=== PATIENT | female | born 1990 | race American Indian/Alaskan Native ===

== ENCOUNTER 2021-04-30 07:49 | Emergency (ER) | payer MEDICAID ==
[2021-04-30 08:09] VITALS: BP 115/81
[2021-04-30] MEDS ORDERED: ACETAMINOPHEN 500 MG TAB PO ONE (10:25)
[2021-04-30] MEDS ORDERED: SODIUM CHLORIDE 0.9% 1000 ML 1,000 ML IV ONE (10:25)
[2021-04-30] MEDS ORDERED: ONDANSETRON 4 MG/2 ML INJ IV ONE (10:25)
--- NOTE | 2021-04-30 11:25 | Emergency Department Report ---
- General Chief Complaint: Upper Respiratory Infection Stated Complaint: BODY ACHES,HEAD HURTING PUI?: Yes Source: patient Mode of arrival: Ambulatory Limitations: No Limitations - History of Present Illness Initial Comments: 30-year-old -[place] female presents to the emergency room for 1 day history of body aches weakness vomiting. She has positive sick contact. Past medical history of seizures currently on no meds does not have a primary care provider. Admits to us slight fever and chills. Has not got tested for Covid Complaint: rhinorrhea, nasal congestion Onset/Timin -: days(s) Severity scale (0 -10): 5 Quality: aching Consistency: constant Improves With: nothing Worsens With: nothing Context: sick contacts Associated Symptoms: fever, chills, myalgias, headache, rhinorrhea, nasal congestion, cough, vomiting Treatments Prior to Arrival: none - Related Data Previous Rx's Medication Instructions Recorded Last Taken Type Ondansetron [Zofran Odt] 4 mg PO Q8HR PRN #12 tab.rapdis 04/30/21 Unknown Rx Allergies Allergy/AdvReac Type Severity Reaction Status Date / Time morphine AdvReac Swelling Verified 04/30/21 08:09 Penicillins AdvReac Unknown Verified 04/30/21 08:09 ED Review of Systems ROS: Stated complaint: BODY ACHES,HEAD HURTING Other details as noted in HPI Comment: All other systems reviewed and negative ED Past Medical Hx - Medications Home Medications: Home Medications Medication Instructions Recorded Confirmed Last Taken Type Ondansetron [Zofran Odt] 4 mg PO Q8HR PRN #12 tab.rapdis 04/30/21 Unknown Rx ED Physical Exam - General Limitations: No Limitations General appearance: alert, in no apparent distress - Head Head exam: Present: atraumatic, normocephalic - Eye Eye exam: Present: normal appearance - ENT ENT exam: Present: mucous membranes moist - Neck Neck exam: Present: normal inspection - Respiratory Respiratory exam: Present: normal lung sounds bilaterally. Absent: respiratory distress - Cardiovascular Cardiovascular Exam: Present: normal rhythm, tachycardia. Absent: systolic murmur, diastolic murmur, rubs, gallop - GI/Abdominal GI/Abdominal exam: Present: soft, normal bowel sounds - Extremities Exam Extremities exam: Present: normal inspection - Back Exam Back exam: Present: normal inspection - Neurological Exam Neurological exam: Present: alert, oriented X3, normal gait - Psychiatric Psychiatric exam: Present: normal affect, normal mood - Skin Skin exam: Present: warm, dry, intact, normal color. Absent: rash ED Course Vital Signs 04/30/21 08:00 Temperature 99.6 F Pulse Rate 124 H Respiratory 28 H Rate Blood Pressure 115/81 [Right] O2 Sat by Pulse 100 Oximetry ED Medical Decision Making - Medical Decision Making 30-year-old -[place] female presents to the emergency room for 1 day history of body aches weakness vomiting. She has positive sick contact. Past medical history of seizures currently on no meds does not have a primary care provider. Admits to us slight fever and chills. Has not got tested for Covid Patient is tachycardic at 124. Nausea and vomiting we will give Zofran IV normal saline IV. And acetaminophen 1 g p.o. Critical care attestation.: If time is entered above; I have spent that time in minutes in the direct care of this critically ill patient, excluding procedure time. ED Disposition Clinical Impression: Suspected COVID-19 virus infection Disposition: HOME / SELF CARE / HOMELESS Is pt being admited?: No Does the pt Need Aspirin: No Condition: Stable Instructions: Prevent the Spread of COVID-19 if You Are Sick - CDC, COVID-19: How to Protect Yourself and Others - CDC, COVID-19 Frequently Asked Questions Additional Instructions: Your symptoms appear most consistent with a nonspecific viral syndrome. However, given this current pandemic, COVID-19 is in the differential of possibilities. Despite your previous negative COVID-19 test, I do recommend repeat outpatient Covid 19 testing. In the meantime, isolate/quarantine yours elf and stay away from anyone who is elderly, immunocompromised or chronically ill. You can use ibuprofen every 6-8 hours and Tylenol every 4-8 hours, using the dosing on the back of the bottle, as needed for any fever or body aches. Return to the emergency department with any worsening of your symptoms, development of chest pain or shortness of breath, or with any acute distress. Prescriptions: Ondansetron [Zofran Odt] 4 mg PO Q8HR PRN #12 tab.rapdis PRN Reason: Nausea And Vomiting Referrals: PRIMARY CARE,MD [Primary Care Provider] - 3-5 Days Forms: Work/School Release Form(ED) Time of Disposition: 13:34
== END 2021-04-30 13:45 | disposition home or self-care (01) ==
LOC: ED 07:49
DX: R09.81 Nasal congestion (principal); M79.18 Myalgia, other site; Z20.822 Contact with and (suspected) exposure to COVID-19; Z88.5 Allergy status to narcotic agent; Z88.0 Allergy status to penicillin; Z79.899 Other long term (current) drug therapy
CPT/HCPCS: 96361; 96374; 99282; J2405; J7030; Q0162

== ENCOUNTER 2021-12-30 11:18 | Inpatient (IN) | payer MEDICAID ==
[2021-12-30] MEDS ORDERED: ACETAMINOPHEN 325 MG TAB PO PRN ×2 (11:45→21:22)
[2021-12-30] MEDS ORDERED: miSOPROStol 200 MCG TAB PR PRN (11:45)
[2021-12-30] MEDS ORDERED: LIDOCAINE (2%) 20 MG/1 ML VIAL 20 ML MDV INFILTRATI ONE (11:45)
[2021-12-30] MEDS ORDERED: ePHEDrine SULFATE 50 MG/1 ML INJ IV PRN ×2 (11:45→13:32)
[2021-12-30] MEDS ORDERED: OXYTOCIN 10 UNIT/1 ML INJ IM PRN (11:45)
[2021-12-30] MEDS ORDERED: NalbUPHINE 10 MG/1 ML INJ IV PRN (11:45)
[2021-12-30] MEDS ORDERED: MINERAL OIL 30 ML ORAL LIQD PO PRN (11:45)
[2021-12-30] MEDS ORDERED: LACTATED RINGERS 1,000 ML IV SCH (11:45)
[2021-12-30] MEDS ORDERED: CARBOPROST TROMETHAMINE 250 MCG/1 ML INJ IM PRN (11:45)
[2021-12-30] MEDS ORDERED: PROMETHAZINE 25 MG TAB PO PRN (11:45)
[2021-12-30] MEDS ORDERED: fentaNYL 100 MCG/2 ML INJ IV PRN (11:45)
[2021-12-30] MEDS ORDERED: METHYLERGONOVINE MALEATE 0.2 MG/ML VIAL IM PRN (11:45)
[2021-12-30] MEDS ORDERED: TERBUTALINE 1 MG/1 ML INJ SUB-Q PRN (11:45)
[2021-12-30] MEDS ORDERED: LOPERAMIDE 2 MG CAP PO PRN (11:45)
[2021-12-30] MEDS ORDERED: ONDANSETRON 4 MG/2 ML INJ IV PRN (11:45)
--- NOTE | 2021-12-30 11:58 | History and Physical Report ---
History of Present Illness Date of examination: 12/30/21 Chief complaint: ctx History of present illness: at 39.3wks by EDC 01/03/22. care at Dr. Conley and pt states she was scheduled to deliver at [facility]. Pt states that her ctx started yesterday but she was waiting on her due date in 4days to have her baby. Pt rushed here via ambulance and saline lock placed to left hand. pt gives history of seizures and not taking any meds. pt also states that she is ALL to N and reaction unknown, however she has had rash before and cannot recall if her throat gets swollen. pt admits to movement, denies LOF and desires epidural for painful contractions. pt cannot recall her GBS result. Past History Past Medical History: seizure (on no meds, dx in childhood, last med taken in 2005) Past Surgical History: no surgical history Social history: no significant social history - Obstetrical History Expected Date of Delivery: 01/03/22 Actual Gestation: 39 Week(s) 3 Day(s) : 9 Hx # Term Pregnancies: 8 Number of Living Children: 8 Medications and Allergies Allergies Allergy/AdvReac Type Severity Reaction Status Date / Time morphine AdvReac Swelling Verified 04/30/21 08:09 Penicillins AdvReac Unknown Verified 04/30/21 08:09 Home Medications Medication Instructions Recorded Confirmed Last Taken Type Ondansetron [Zofran Odt] 4 mg PO Q8HR PRN #12 tab.rapdis 04/30/21 Unknown Rx Review of Systems All systems: negative (painful ctx) - Physical Exam Breasts: Positive: deferred Cardiovascular: Regular rate Lungs: Positive: Normal air movement Abdomen: Positive: soft Genitourinary (Female): Positive: normal external genitalia Uterus: Positive: enlarged (non-tender gravid) Extremities: Positive: normal - Obstetrical FHR: category 1 Uterine Contraction Monitor Mode: External Cervical Dilatation: 5.5 (not consistent with triage at 7-8cm) Cervical Effacement Percentage: 80 (u/s at bedside with vertex presentation) station: -3 Uterine Contraction Pattern: Regular Uterine Contraction Intensity: Moderate Results All other labs normal. Assessment and Plan Grandmultiparous in active labor, GBS unknown, pt desires epidural. H/O seizures and not on any meds 1. Admit to labor and delivery 2. Obtain records 3. Send walk in labs and urine drug screen 4. Start IV bolus for epidural and give IV pain meds until labs available and fluid bolus complete 5. Expectant mgt and re-evaluate when pt comfortable with epidural and if cervix unchanged, then augment labor after prenatals received Plan of care discussed with pt and she is agreeable. Expect
[2021-12-30] MEDS ORDERED: VANCOMYCIN/NS 1 GM/250 ML 1 GM/250 ML BAG IV SCH (12:00)
[2021-12-30] MEDS ORDERED: OXYTOCIN DRIP 30 UNITS/500 ML BAG IV SCH ×2 (12:00→17:00)
[2021-12-30 13:09] LABS: Hemoglobin 11.8 gm/dl (10.1-14.3); Mean Corpuscular HGB Conc 35 % (30-34); Mean Corpuscular Volume 84 fl (79-97); Platelet Count 140 K/mm3 (140-440); Red Blood Count 4.05 M/mm3 (3.65-5.03); Red Cell Distribution Width 13.9 % (13.2-15.2)
[2021-12-30 13:25] LABS: Alanine Aminotransferase 10 units/L (7-56); Albumin 3.7 g/dL (3.9-5); Blood Urea Nitrogen 4 mg/dL (7-17); Calcium 8.8 mg/dL (8.4-10.2); Hemolysis Index 3; Uric Acid 6.6 mg/dL (3.5-7.6)
[2021-12-30 13:27] LABS: BUN/Creatinine Ratio 6
[2021-12-30] MEDS ORDERED: NALOXONE 0.4 MG/1 ML INJ IV PRN (13:32)
[2021-12-30] MEDS ORDERED: fentaNYL-BUPIV 2 MCG/ML-0.125% 200 MCG/100 ML BAG EPIDURAL SCH (14:00)
--- NOTE | 2021-12-30 14:45 | Anesthesia Consultation ---
Anesthesia Consult and Med Hx Date of service: 12/30/21 - Airway Anesthetic Teeth Evaluation: Poor ROM Head & Neck: Adequate Mental/Hyoid Distance: Adequate Mallampati Class: Class II Intubation Access Assessment: Probably Good - Pulmonary Exam CTA: Yes - Cardiac Exam Cardiac Exam: RRR - Pre-Operative Health Status ASA Pre-Surgery Classification: ASA2 Proposed Anesthetic Plan: Epidural - Pulmonary Hx Smoking: No Hx Asthma: No - Central Nervous System Hx Neuromuscular Disorder: Yes Hx Seizures: Yes (last seizure occured in middle school) Hx Psychiatric Problems: No - Gastrointestinal Hx Gastroesophageal Reflux Disease: No - Endocrine Hx Renal Disease: No Hx Liver Disease: No Hx Insulin Dependent Diabetes: No Hx Non-Insulin Dependent Diabetes: No Hx Thyroid Disease: No - Other Systems Hx Alcohol Use: No Hx Substance Use: No Hx Obesity: Yes
--- NOTE | 2021-12-30 14:48 | Progress Note ---
Labor Epidural - Labor Epidural Start Time: 13:53 Stop Time: 13:59 Performed by:: WAQAS VILLAREAL Procedure: Patient is requesting a laboring epidural for laboring pain. Patient IDed, H&P reviewed, all questions and concerns were answered, and consent was signed. Timeout was performed at bedside. Patient in sitting position. Sterile prep and drape was performed. [3] ml of 1% lidocaine skin wheal at L[3]- L [4]. 17- gauge Tuohy epidural needle was advanced to loss of resistance with saline technique 6cm. Single dural perforation via 25 gauge spinal needle placed through the shaft of Epidural needle. Positive CSF via spinal needle. Negative CSF negative blood via Epidural needle. Epidural catheter advanced to [10] centimeters. [NEGATIVE] Aspiration [NEGATIVE] test dose. Negative Paresthesia. Sterile dressing applied. Patient tolerated procedure.
[2021-12-30 20:41] LABS: Amphetamine Screen,Urine Negative; Benzodiazepines Screen,Urine Negative; Cannabinoid Screen,Urine Negative; Cocaine Screen,Urine Negative; Methadone Screen,Urine Negative; Opiate Screen,Urine Negative
--- NOTE | 2021-12-30 20:53 | Procedure Note ---
OB Delivery Note - Delivery Date of Delivery: 12/30/21 Mis Manager: JASON CHILEL Estimated blood loss: <100cc - Vaginal Delivery presentation: vertex Delivery position: OP Intrapartum events: no care Delivery induction: none Delivery monitor: external FHT, external uterine Route of delivery: Delivery placenta: spontaneous Delivery cord: 3 umbilical vessels Episiotomy: none Delivery laceration: none Anesthesia: epidural Delivery comments: Called to room by nursing staff as patient was complete with urge to push. Baby boy birthed over intact perineum, placed skin to skin on mother's abdomen, 3 vessel cord clamped and cut after cessation of pulsation. Cord blood collected. Placenta delivered intact and complete. lochia scant, no lacs to repair. mother and baby LDR stable. all counts correct. - Infant A at 1 minute: 8 at 5 minutes: 9 Infant Gender: Male (7#11oz)
[2021-12-30] MEDS ORDERED: MAGNESIUM HYDROXIDE (MOM) ORAL LIQD UDC PO PRN (21:22)
[2021-12-30] MEDS ORDERED: LANOLIN/ZINC/DIMETHICONE (LANSINOH) 7 GM TP PRN (21:22)
[2021-12-30] MEDS ORDERED: WITCH HAZEL/ GLYCERIN PAD TP PRN (21:22)
[2021-12-30] MEDS ORDERED: diphenhydrAMINE 25 MG CAP PO PRN (21:22)
[2021-12-30] MEDS ORDERED: BENZOCAINE/MENTHOL 20/0.5% TOP SPRAY 56 GM TP PRN (21:22)
[2021-12-30] MEDS: IBUPROFEN 800 MG TAB PO SCH (22:35)
[2021-12-31] MEDS: DOCUSATE SODIUM 100 MG CAP PO SCH ×3 (00:37→22:31)
[2021-12-31] MEDS: IBUPROFEN 800 MG TAB PO SCH ×2 (05:13→11:03)
[2021-12-31 10:50] LABS: Hematocrit 31.6 % (30.3-42.9); Hemoglobin 10.5 gm/dl (10.1-14.3); Mean Corpuscular HGB Conc 33 % (30-34); Mean Corpuscular Volume 85 fl (79-97); Platelet Count 120 K/mm3 (140-440); Red Blood Count 3.71 M/mm3 (3.65-5.03); Red Cell Distribution Width 13.6 % (13.2-15.2)
--- NOTE | 2021-12-31 13:19 | Progress Note ---
Assessment and Plan A: PP Day #1 H/O Seizures (None Recently/No Medication) Negative Flatus P: Follow Routine Orders Encourage Increased Ambulation Subjective - Subjective Date of service: 12/31/21 Patient reports: appetite normal, voiding normally, pain poorly controlled, ambulating normally, other (Denies recent seziure activity) [place]: doing well, bottle feeding (and ) Objective - Vital Signs Latest vital signs: Vital Signs Temp Pulse Resp BP BP Pulse Ox Pulse Ox 12/31/21 09:15 98 12/31/21 07:31 98.4 F 73 18 124/88 98 12/31/21 06:05 98 12/31/21 05:08 97.8 F 57 L 20 145/81 98 12/31/21 04:10 98 12/31/21 02:40 98 12/30/21 23:30 98 12/30/21 23:20 98.2 F 64 20 157/79 100 12/30/21 22:52 72 89 12/30/21 22:47 71 99 12/30/21 22:42 58 L 100 12/30/21 22:37 63 100 12/30/21 22:36 74 92 12/30/21 22:35 20 12/30/21 22:34 58 L 172/92 12/30/21 22:32 56 L 100 12/30/21 22:30 56 L 160/85 12/30/21 22:28 59 L 0 L 12/30/21 22:27 60 0 L 12/30/21 22:22 67 99 12/30/21 22:17 62 99 12/30/21 22:15 57 L 171/94 12/30/21 22:12 77 98 12/30/21 22:07 63 99 12/30/21 22:02 59 L 100 12/30/21 21:59 83 84 12/30/21 21:57 76 100 12/30/21 21:54 78 149/82 12/30/21 21:52 68 99 12/30/21 21:47 95 H 97 12/30/21 21:42 89 98 12/30/21 21:37 66 99 12/30/21 21:35 64 158/83 12/30/21 21:32 75 98 12/30/21 21:27 76 98 12/30/21 21:22 85 99 12/30/21 21:17 80 97 12/30/21 21:14 86 91 12/30/21 21:12 82 100 12/30/21 21:07 83 99 12/30/21 21:02 93 H 97 12/30/21 20:58 90 155/71 12/30/21 20:57 89 99 12/30/21 20:52 88 100 12/30/21 20:47 92 H 98 12/30/21 20:42 87 97 12/30/21 20:37 95 H 132/81 100 12/30/21 20:33 101 H 140/93 90 12/30/21 20:32 129 H 100 12/30/21 20:27 144 H 100 12/30/21 20:22 122 H 100 12/30/21 20:17 134 H 99 12/30/21 20:12 110 H 100 12/30/21 20:07 150 H 99 12/30/21 20:02 95 H 100 12/30/21 19:57 87 99 12/30/21 19:52 117 H 99 12/30/21 19:49 104 H 141/90 12/30/21 19:47 101 H 100 12/30/21 19:42 120 H 99 12/30/21 19:37 95 H 100 12/30/21 19:33 86 127/82 12/30/21 19:32 86 100 12/30/21 19:27 80 100 12/30/21 19:22 101 H 100 12/30/21 19:19 90 118/74 12/30/21 19:17 90 99 12/30/21 19:12 90 99 12/30/21 19:07 90 100 12/30/21 19:06 97.7 F 16 100 12/30/21 19:05 100 H 133/86 12/30/21 19:02 88 100 12/30/21 18:57 77 100 12/30/21 18:52 100 H 100 12/30/21 18:48 97 H 126/88 12/30/21 18:47 91 H 100 12/30/21 18:42 82 100 12/30/21 18:37 79 100 12/30/21 18:35 95 H 124/84 12/30/21 18:32 87 100 12/30/21 18:28 98.6 F 12/30/21 18:27 91 H 99 12/30/21 18:22 105 H 100 12/30/21 18:20 113 H 133/88 12/30/21 18:17 81 99 12/30/21 18:12 79 100 12/30/21 18:07 81 99 12/30/21 18:04 99 H 121/74 12/30/21 18:02 82 100 12/30/21 17:57 82 100 12/30/21 17:52 104 H 99 12/30/21 17:49 84 124/77 12/30/21 17:47 76 100 12/30/21 17:42 85 100 12/30/21 17:37 92 H 100 12/30/21 17:33 83 124/75 12/30/21 17:32 85 100 12/30/21 17:27 80 100 12/30/21 17:22 88 100 12/30/21 17:18 81 123/75 12/30/21 17:17 86 100 12/30/21 17:12 95 H 99 12/30/21 17:07 89 99 12/30/21 17:04 70 132/75 12/30/21 17:02 101 H 99 12/30/21 16:57 92 H 100 12/30/21 16:52 98 H 99 12/30/21 16:50 75 117/77 12/30/21 16:47 74 100 12/30/21 16:42 70 100 12/30/21 16:37 70 100 12/30/21 16:34 71 123/76 12/30/21 16:32 73 100 12/30/21 16:27 69 100 12/30/21 16:22 75 99 12/30/21 16:19 74 119/75 12/30/21 16:17 70 98 12/30/21 16:12 70 97 12/30/21 16:07 72 98 12/30/21 16:04 80 120/76 12/30/21 16:02 75 97 12/30/21 15:57 71 97 12/30/21 15:52 76 98 12/30/21 15:49 72 130/75 12/30/21 15:47 78 97 12/30/21 15:42 78 99 12/30/21 15:37 87 98 12/30/21 15:34 69 126/76 12/30/21 15:32 90 97 12/30/21 15:27 76 97 12/30/21 15:22 79 97 12/30/21 15:19 71 125/75 12/30/21 15:17 71 98 12/30/21 15:12 75 98 12/30/21 15:07 83 96 12/30/21 15:05 74 133/74 12/30/21 15:02 91 H 97 12/30/21 14:57 86 98 12/30/21 14:52 98 H 97 12/30/21 14:50 86 141/96 12/30/21 14:47 86 97 12/30/21 14:42 77 96 12/30/21 14:37 88 98 12/30/21 14:34 75 139/90 12/30/21 14:32 83 97 12/30/21 14:27 87 97 12/30/21 14:22 91 H 97 12/30/21 14:17 84 131/84 97 12/30/21 14:12 78 97 12/30/21 14:07 78 97 12/30/21 14:03 96 H 130/94 12/30/21 14:02 93 H 97 12/30/21 13:57 84 96 12/30/21 13:52 99 H 95 12/30/21 13:47 98 H 122/82 97 12/30/21 13:33 78 125/83 12/30/21 13:18 96 H 131/83 Intake and Output 12/30/21 12/31/21 12/31/21 22:59 06:59 14:59 Intake Total 120 120 Output Total 650 400 Balance -650 -280 120 Intake: Oral 120 Intake, Free Water 120 Output: Urine 650 400 Indwelling Catheter 50 Void 600 400 Other: Total, Intake Amount 120 Total, Output Amount 400 400 # Voids Void 1 Weight 80.739 kg Estimated Blood Loss 100 - Exam Breasts: Present: normal Cardiovascular: Present: Regular rate Lungs: Present: Clear to auscultation, Normal air movement Abdomen: Present: normal appearance, soft, normal bowel sounds Uterus: Present: normal, firm, fundal height below umbilicus Extremities: Present: normal - Labs Labs: Abnormal lab results 12/30/21 12/31/21 Range/Units Unknown 10:05 Plt Count 120 L (140-440) K/mm3 Potassium 3.5 L (3.6-5.0) mmol/L Carbon Dioxide 21 L (22-30) mmol/L BUN 4 L (7-17) mg/dL Alkaline Phosphatase 200 H (35-129) units/L Lactate Dehydrogenase 217 H (91-180) units/L Albumin 3.7 L (3.9-5) g/dL
[2021-12-31] MEDS: HYDROcodone/Acetaminophen 7.5-325MG-15ML ORAL LIQD PO PRN (14:05)
--- NOTE | 2021-12-31 16:03 | Post Anesthesia Evaluation ---
- Post Anesthesia Evaluation Patient Participated: Yes Airway Patent: Yes Stable Respiratory Function: Yes Nausea/Vomiting: No Temp > 96.8F: Yes Pain Manageable: Yes Adequeate Hydration: Yes Anesthesia Complications: No Block Receding Appropriately: Yes Patient on Ventilator: No
[2021-12-31] MEDS: IBUPROFEN ORAL LIQD 100 MG/5 ML ORAL.LIQD PO SCH ×2 (17:46→23:08)
[2022-01-01] MEDS: HYDROcodone/Acetaminophen 7.5-325MG-15ML ORAL LIQD PO PRN ×3 (04:47→21:23)
[2022-01-01] MEDS: IBUPROFEN ORAL LIQD 100 MG/5 ML ORAL.LIQD PO SCH ×2 (06:11→23:00)
[2022-01-01] MEDS: DOCUSATE SODIUM 100 MG CAP PO SCH ×2 (09:59→21:56)
[2022-01-01 10:16] LABS: Basophils % (Auto) 0.3 % (0.0-1.8); Eosinophils # (Auto) 0.1 K/mm3 (0.0-0.4); Eosinophils % (Auto) 0.7 % (0.0-4.3); Hematocrit 28.7 % (30.3-42.9); Hemoglobin 9.9 gm/dl (10.1-14.3); Lymphocytes # (Auto) 1.7 K/mm3 (1.2-5.4); Mean Corpuscular HGB Conc 35 % (30-34); Mean Corpuscular Volume 84 fl (79-97); Monocytes # (Auto) 0.5 K/mm3 (0.0-0.8); Monocytes % (Auto) 6.3 % (0.0-7.3); Platelet Count 113 K/mm3 (140-440); Red Cell Distribution Width 13.6 % (13.2-15.2)
--- NOTE | 2022-01-01 13:34 | Progress Note ---
Subjective Date of service: 01/01/22 Principal diagnosis: PPD#1 with thrombocytopenia Interval history: pt has no complaints and is breast feeding. Pain still present and pt has not taken any meds. Voiding without difficulty Objective - Constitutional Vitals: Vital Signs - 12hr 01/01/22 01/01/22 01/01/22 01:45 04:30 06:07 Temperature Pulse Rate Respiratory Rate Blood Pressure O2 Sat by Pulse 98 98 98 Oximetry [ Anterior Bilateral Throughout] 01/01/22 09:04 Temperature 98.1 F Pulse Rate 74 Respiratory 18 Rate Blood Pressure 134/78 O2 Sat by Pulse Oximetry [ Anterior Bilateral Throughout] - Labs CBC & Chem 7: 01/01/22 09:39 12/30/21 Unknown Labs: Abnormal lab results 01/01/22 Range/Units 09:39 RBC 3.40 L (3.65-5.03) M/mm3 Hgb 9.9 L (10.1-14.3) gm/dl Hct 28.7 L (30.3-42.9) % MCHC 35 H (30-34) % Plt Count 113 L (140-440) K/mm3 Seg Neutrophils % 71.7 H (40.0-70.0) % Medications & Allergies - Medications Allergies/Adverse Reactions: Allergies morphine Adverse Reaction (Verified 04/30/21 08:09) Swelling Penicillins Adverse Reaction (Verified 04/30/21 08:09) Unknown Home Medications: Home Medications Medication Instructions Recorded Confirmed Last Taken Type Ondansetron [Zofran Odt] 4 mg PO Q8HR PRN #12 tab.rapdis 04/30/21 12/31/21 Unknown Rx Active Medications: Generic Name Dose Route Start Last Admin Trade Name Freq PRN Reason Stop Dose Admin Acetaminophen 650 mg 12/30/21 21:22 12/31/21 02:57 Acetaminophen 325 Mg Tab PO 650 mg Q4H PRN Administration Pain MILD(1-3)/Fever >100.5/RODRIGUEZ Hydrocodone Bitart/Acetaminophen 7.5 mg 12/31/21 14:00 01/01/22 04:47 Hydrocodone/Acetaminophen [id number] Oral Liqd PO 7.5 mg Q4H PRN Administration Pain, Moderate (4-6) Benzocaine/Menthol 1 spray 12/30/21 21:22 Benzocaine/Menthol 20/0.5% [place] 56 Gm TP PRN PRN Episiotomy Pain Diphenhydramine HCl 25 mg 12/30/21 21:22 Diphenhydramine 25 Mg Cap PO Q6H PRN Itching Docusate Sodium 100 mg 12/30/21 22:00 01/01/22 09:59 Docusate Sodium 100 Mg Cap PO 100 mg BID MACK Administration Ibuprofen 800 mg 12/31/21 17:00 01/01/22 06:11 Ibuprofen Oral Liqd 100 Mg/5 Ml Oral.Liqd PO 800 mg Q6H MACK Administration Magnesium Hydroxide 30 ml 12/30/21 21:22 Magnesium Hydroxide (Mom) Oral Liqd Udc PO HS PRN Constipation Multi-Ingredient Ointment 1 applic 12/30/21 21:22 Lanolin/Zinc/Dimethicone (Lansinoh) 7 Gm TP PRN PRN Sore Nipples Witch Maegan/Glycerin 1 each 12/30/21 21:22 Witch Maegan/ Glycerin Pad TP PRN PRN Hemorrhoid/cleansing/soothing
[2022-01-01] MEDS: FERROUS SULFATE 325 MG TAB PO SCH (21:56)
[2022-01-02] MEDS: HYDROcodone/Acetaminophen 7.5-325MG-15ML ORAL LIQD PO PRN ×2 (02:09→18:15)
[2022-01-02 06:33] LABS: Alanine Aminotransferase 11 units/L (7-56); Albumin 3.3 g/dL (3.9-5); Blood Urea Nitrogen 4 mg/dL (7-17); Calcium 8.4 mg/dL (8.4-10.2); Hemolysis Index 20
[2022-01-02 06:34] LABS: BUN/Creatinine Ratio 7
--- NOTE | 2022-01-02 07:04 | Progress Note ---
Assessment and Plan A: PPD #3 - Thrombocytopenia, Labial BP P: Labetalol 100mg po bid CBC this am Subjective - Subjective Date of service: 01/02/22 Principal diagnosis: PPD#3 with thrombocytopenia, elevated BP Patient reports: appetite normal : doing well Objective - Vital Signs Latest vital signs: Vital Signs Temp Pulse Resp BP Pulse Ox Pulse Ox 01/02/22 04:57 97.3 F L 20 128/77 01/02/22 01:55 98 01/02/22 01:43 97.6 F 20 144/96 01/01/22 23:35 98 01/01/22 21:30 98 01/01/22 21:23 18 01/01/22 20:00 98 01/01/22 18:24 98 01/01/22 17:29 98.0 F 58 L 18 158/86 98 01/01/22 16:00 98 01/01/22 09:04 98.1 F 74 18 134/78 01/01/22 09:00 98 Intake and Output 01/01/22 01/02/22 01/02/22 22:59 06:59 14:59 Intake Total 250 Balance 250 Intake: Oral 250 Other: Total, Intake Amount 250 # Voids Void 3 - Exam Breasts: Present: deferred Cardiovascular: Present: Regular rate Lungs: Present: Clear to auscultation Abdomen: Present: soft Vulva: both: normal Uterus: Present: fundal height below umbilicus Deep Tendon Reflex Grade: Normal +2 - Labs Labs: Abnormal lab results 01/01/22 01/02/22 Range/Units 09:39 06:01 RBC 3.40 L (3.65-5.03) M/mm3 Hgb 9.9 L (10.1-14.3) gm/dl Hct 28.7 L (30.3-42.9) % MCHC 35 H (30-34) % Plt Count 113 L (140-440) K/mm3 Seg Neutrophils % 71.7 H (40.0-70.0) % BUN 4 L (7-17) mg/dL Alkaline Phosphatase 144 H (35-129) units/L Total Protein 5.5 L (6.3-8.2) g/dL Albumin 3.3 L (3.9-5) g/dL
[2022-01-02] MEDS: IBUPROFEN ORAL LIQD 100 MG/5 ML ORAL.LIQD PO SCH ×2 (09:00→23:00)
[2022-01-02] MEDS: DOCUSATE SODIUM 100 MG CAP PO SCH ×2 (09:58→21:59)
[2022-01-02] MEDS: FERROUS SULFATE 325 MG TAB PO SCH ×2 (10:24→21:59)
[2022-01-02 16:18] LABS: Basophils % (Auto) 0.2 % (0.0-1.8); Eosinophils % (Auto) 0.3 % (0.0-4.3); Hematocrit 30.6 % (30.3-42.9); Hemoglobin 10.2 gm/dl (10.1-14.3); Lymphocytes # (Auto) 1.3 K/mm3 (1.2-5.4); Lymphocytes % (Auto) 15.3 % (13.4-35.0); Mean Corpuscular HGB Conc 33 % (30-34); Mean Corpuscular Volume 85 fl (79-97); Monocytes # (Auto) 0.6 K/mm3 (0.0-0.8); Monocytes % (Auto) 6.7 % (0.0-7.3); Platelet Count 138 K/mm3 (140-440); Red Blood Count 3.61 M/mm3 (3.65-5.03)
[2022-01-03] MEDS: HYDROcodone/Acetaminophen 7.5-325MG-15ML ORAL LIQD PO PRN (06:32)
[2022-01-03] MEDS: IBUPROFEN ORAL LIQD 100 MG/5 ML ORAL.LIQD PO SCH ×2 (06:32→09:58)
[2022-01-03] MEDS: FERROUS SULFATE 325 MG TAB PO SCH (09:56)
[2022-01-03] MEDS: DOCUSATE SODIUM 100 MG CAP PO SCH (09:56)
--- NOTE | 2022-01-03 11:46 | Discharge Summary ---
Providers - Providers Date of Admission: 12/30/21 11:45 Date of discharge: 01/03/22 Attending physician: FACUNDO GUALLPA Primary care physician: FACUNDO GUALLPA Hospitalization Reason for admission: active labor Delivery: Episiotomy: none Laceration: none Other procedures: none complications: none Discharge diagnosis: IUP at term delivered [place] baby: male Condition at discharge: Good Disposition: 01 HOME / SELF CARE / HOMELESS Plan - Discharge Medications Prescriptions: labetaloL [Labetalol 200mg TAB] 200 mg PO BID #60 tablet Ibuprofen Oral Liqd [Motrin Oral Liq 100 mg/5 ml] 800 mg PO TID 7 Days #150 oral.liqd - Provider Discharge Summary Activity: no sex for 6 weeks, no heavy lifting 4 weeks, no strenuous exercise Diet: routine Instructions: routine Additional instructions: [] Smoking cessation referral if applicable(refer to patient education folder for contact #) [] Refer to [facility] Booklet Call your doctor immediately for: * Fever > 100.5 * Heavy vaginal bleeding ( >1 pad per hour) * Severe persistent headache * Shortness of breath * Reddened, hot, painful area to leg or breast * Drainage or odor from incision. * Keep incision clean and dry at all times and follow doctor's instructions regarding bathing/showering - Follow up plan Follow up: FACUNDO GUALLPA MD [Primary Care Provider] - 3 Days
[2022-01-03 18:13] VITALS: BP 145/75
== END 2022-01-03 19:40 | disposition home or self-care (01) | DRG 775 ==
LOC: TRG 11:18 → APU 11:20 → TRG 11:45 → LD 11:45 → OB 23:20
PROVIDERS: ADMIT Obstetrics & Gynecology; ATTEND Obstetrics & Gynecology
PROC: 10E0XZZ Delivery of Products of Conception, External Approach (ICD-10-PCS; principal; 2021-12-30)
PROC: 3E0R3BZ Introduction of Anesthetic Agent into Spinal Canal, Percutaneous Approach (ICD-10-PCS; 2021-12-30)
PROC: 00HU33Z Insertion of Infusion Device into Spinal Canal, Percutaneous Approach (ICD-10-PCS; 2021-12-30)
DX: O72.3 Postpartum coagulation defects (principal); Z37.0 Single live birth; Z3A.39 39 weeks gestation of pregnancy; Z20.822 Contact with and (suspected) exposure to COVID-19; D69.6 Thrombocytopenia, unspecified; Z88.5 Allergy status to narcotic agent; Z88.0 Allergy status to penicillin
CPT/HCPCS: 36415; 80053; 80307; 83615; 84550; 85025; 85027; 86592; 86850; 86900; 86901; G0378; J3490; J3370; U0003